=== PATIENT | female | born 1935 | race Caucasian/White ===

== ENCOUNTER → 2017-03-08 | Outpatient (CLI) | payer BC ==
[~2017-03-08] MED LIST: GADOBUTROL 10 ML VIAL IVP ONE
== END ==
LOC: FIMAGING 10:08
PROVIDERS: ATTEND Internal Medicine Gastroenterology
DX: K86.2 Cyst of pancreas (principal)
CPT/HCPCS: A9585

== ENCOUNTER → 2017-06-24 | Outpatient (CLI) | payer BC | LOC: FIMAGING 13:45 | DX: K86.2 Cyst of pancreas (principal) | CPT/HCPCS: A9585 ==

== ENCOUNTER → 2017-08-13 | Outpatient (CLI) | payer BC | LOC: FIMAGING 13:46 | PROVIDERS: ATTEND Midwife | DX: N95.0 Postmenopausal bleeding (principal); N88.8 Other specified noninflammatory disorders of cervix uteri ==

== ENCOUNTER → 2017-12-10 | Outpatient (CLI) | payer BC ==
[~2017-12-10] MED LIST changes: -GADOBUTROL 10 ML VIAL IVP ONE; +IOPAMIDOL (ISOVUE-300) 100 ML BTL ONE
== END ==
LOC: FIMAGING 10:30
DX: K86.2 Cyst of pancreas (principal); E11.9 Type 2 diabetes mellitus without complications; N28.1 Cyst of kidney, acquired; K76.89 Other specified diseases of liver; Z79.01 Long term (current) use of anticoagulants; Z86.711 Personal history of pulmonary embolism
CPT/HCPCS: Q9967

== ENCOUNTER → 2018-06-24 | Outpatient (CLI) | payer BC | LOC: BMCIMAGING 10:43 | PROVIDERS: ATTEND Internal Medicine | DX: R63.4 Abnormal weight loss (principal) ==

== ENCOUNTER → 2018-08-06 | Outpatient (CLI) | payer BC | LOC: FIMAGING 07-31 13:20 | PROVIDERS: ATTEND Internal Medicine Gastroenterology | DX: K86.2 Cyst of pancreas (principal); K76.89 Other specified diseases of liver; N28.1 Cyst of kidney, acquired | CPT/HCPCS: 82565-PO; Q9967 ==

== ENCOUNTER → 2019-01-04 | Outpatient (CLI) | payer BC | LOC: FIMAGING 13:10 | PROVIDERS: ATTEND Internal Medicine | DX: Z13.820 Encounter for screening for osteoporosis (principal); E07.9 Disorder of thyroid, unspecified; E11.9 Type 2 diabetes mellitus without complications; Z78.0 Asymptomatic menopausal state ==